=== PATIENT | male | born 1995 | race Caucasian/White ===

== ENCOUNTER 2022-05-27 06:54 | Emergency (ER) | payer BC ==
[2022-05-27] MEDS ORDERED: Ketorolac 30 MG/ML SDV IM ONE (07:29)
[2022-05-27] MEDS ORDERED: HYDROmorphone 1 MG/ML Syringe IVPUSH ONE (08:01)
== END 2022-05-27 09:16 | disposition home or self-care (01) ==
LOC: MW.ED 06:54
DX: R10.9 Unspecified abdominal pain (principal); Z86.16 Personal history of COVID-19
CPT/HCPCS: 74176; 81001; 87086; 96372; 99284; J1885

== ENCOUNTER 2022-06-06 11:16 | Emergency (ER) | payer BC ==
[2022-06-06 12:20] LABS: CORONAVIRUS COVID-19 NAA NEGATIVE (NEGATIVE); INFLUENZA A NAA NEGATIVE (NEGATIVE); INFLUENZA B NAA NEGATIVE (NEGATIVE)
[2022-06-06] MEDS ORDERED: Acetaminophen 325 MG Tab PO ONE (16:11)
[2022-06-06] MEDS ORDERED: Dexamethasone 10 MG/ML SDV PO ONE (16:11)
[2022-06-06] MEDS ORDERED: Ibuprofen 400 MG Tab PO ONE (16:11)
== END 2022-06-06 16:58 | disposition home or self-care (01) ==
LOC: MW.ED 11:16
DX: J02.9 Acute pharyngitis, unspecified (principal); Z20.822 Contact with and (suspected) exposure to COVID-19
CPT/HCPCS: 0240U; 87651; 99283; A9270; J8540

== ENCOUNTER 2022-06-27 16:35 | Emergency (ER) | payer BC | END 2022-06-27 19:28 | disposition home or self-care (01) | LOC: MW.ED 16:35 | DX: J01.00 Acute maxillary sinusitis, unspecified (principal); Z79.899 Other long term (current) drug therapy; Z86.16 Personal history of COVID-19 | CPT/HCPCS: 99283 ==